=== PATIENT | female | born 1965 | race Hispanic/Latino ===

== ENCOUNTER 2020-02-12 19:46 | Emergency (ER) | payer SELFPAY ==
--- NOTE | ~2020-02-12 | XR_ITS ---
EXAMINATION: XR shoulder RT min 2V DATE: 02/12/2020 21:02 INDICATION: Right shoulder pain and limited range of motion. TECHNIQUE: AP internally and externally rotated, AP oblique externally rotated and transscapular Y vi ews of the right shoulder were obtained. COMPARISON: None FINDINGS: Normal alignment. No fracture.Mild glenohumeral and acromioclavicular osteoarthritis. Intramedullary metallic anchor likely for bicipital tenodesis along the anterior aspect of the proximal humeral katherine physis. Visualized portions of the lungs are clear. Soft tissues are unremarkable. IMPRESSION: 1. Mild right glenohumeral and acromioclavicular osteoarthritis. No acute osseous abnormality. 2. Postoperative change of likely prior right bicipital tenodesis. Reviewed, dictated and finalized at location A. IMPRESSION: 1. Mild right glenohumeral and acromioclavicular osteoarthritis. No acute osseo us abnormality. 2. Postoperative change of likely prior right bicipital tenodesis.
[2020-02-12 19:58] VITALS: BP 145/107; PULSE 89; RESP 18; TEMP 36.9; O2SAT 100
--- NOTE | 2020-02-12 20:49 | ED.UPPEXIN ---
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 Patient states over 1 year ago she had right subscapular repair with bicep tendon repair performed by a Dr. Rubio. He states since her surgery she has been having pain to right shoulder and upper arm. Her pain is worse with movement and lifting. She also reports she has had difficulty making a fist to right hand since her surgery. She describes her pain has a burning pain. She states her doctor was referring her a different doctor for pain injection in her hand and shoulder but she never received referral. She was taking naproxen 500 mg and this was helping her pain. She ran out of her naproxen 2 weeks ago so her pain has intensified. She denies any new injuries. complaint: injury to: right and shoulder Onset (ago): year(s) Relieving factors: medication (naproxen) Exacerbating factors: movement of extremity Related Data Allergies Allergy/AdvReac Type Severity Reaction Status Date / Time No Known Allergies Allergy Unknown Uncoded 02/12/20 20:03 Review of Systems Review of Systems: All systems reviewed & are unremarkable except as noted in HPI and below Constitutional: Constitutional: Denies chills and Denies fever(s) Respiratory: Respiratory: Denies dyspnea Gastrointestinal: Gastrointestinal: Denies nausea Musculoskeletal: Musculoskeletal: Reports arthralgias and Denies joint swelling Integumentary/Breasts: Skin/Breast: Denies erythema and Denies rash Neurologic: Denies focal weakness and Denies numbness [facility] Past Medical History Medical History (Updated 02/13/20 @ 00:00 by Background Daaniket) Patient denies medical problems Surgical History Surgical History (Updated 02/12/20 @ 20:56 by Bella Flynn MD) H/O shoulder surgery Social History Social History Gender identity (if verbalized by the patient): Female Exam Const: General: alert Orientation/consciousness: patient oriented x3 HENMT: Head: normocephalic and atraumatic Mouth: Yes Normal oral and palatal mucosa present Chest: Chest palpation & inspection: normal inspection of the chest Resp: Effort & Inspection: normal respiratory effort Auscultation: clear to auscultation bilaterally Cardio: Rate: regular rate Rhythm: regular rhythm Heart sounds: no murmurs Peripheral pulses: radial pulses present bilateral Skin: General skin exam: normal color Rashes: no rashes Neuro: General: patient oriented x3 and moves all extremities Extrem: General: no pedal edema Other: no erythema, redness or swelling to extremities. She has tenderness to palpation to right anterior shoulder. Pain with abduction of shoulder. Able to abduct almost up to 90 degrees Psych: Mental Status: mental status grossly normal Course Course Emergency Course: I have explained to patient I will prescribed NSAIDS and she will need follow up with PcP or orthopedic surgeon for her chronic right shoulder pain Vital Signs Vital signs: Vital Signs Temperature 98.5 F 02/12/20 19:58 Pulse Rate 89 02/12/20 19:58 Respiratory Rate 18 02/12/20 19:58 Blood Pressure 145/107 H 02/12/20 19:58 Pulse Oximetry 100 02/12/20 19:58 Temperature 98.5 F 02/12/20 19:58 Pulse Rate 89 02/12/20 19:58 Respiratory Rate 18 02/12/20 19:58 Blood Pressure 145/107 H 02/12/20 19:58 Pulse Oximetry 100 02/12/20 19:58 MDM - Extremity Injury (Upper) Imaging Data Radiologist's impression: ITS Impressions Shoulder X-Ray 02/12/20 21:07 IMPRESSION: 1. Mild right glenohumeral and acromioclavicular o
[2020-02-12] MEDS: KETOROLAC (*BKC) 60 MG/2 ML VIAL IM (21:08)
--- NOTE | 2020-02-12 22:14 | PC.NURSE ---
Discharge instructions given with lovet account consultant Martha. patient and family verbalized understanding.
== END 2020-02-12 22:29 | disposition home or self-care (01) ==
PROVIDERS: Emergency Provider General Practice; PCP Registered Nurse
DX: M25.511 Pain in right shoulder (principal); M19.011 Primary osteoarthritis, right shoulder; G89.29 Other chronic pain
CPT/HCPCS: 73030; 96372; 99283; A4565; J1885

== ENCOUNTER 2021-06-25 20:34 | Emergency (ER) | payer SELFPAY ==
--- NOTE | ~2021-06-25 | XR_ITS ---
EXAMINATION: XR chest 1V DATE: 06/25/2021 21:23 INDICATION: Right chest pain. TECHNIQUE: A single frontal view of the chest was obtained. COMPARISON: None. FINDINGS: There is mild atelectasis at left lung base. No pleural effusion or pneumothorax. Cardiomeg precious is noted. IMPRESSION: 1. Mild atelectasis at left lung base. 2. Cardiomegaly. Reviewed, dictated and finalized at location A.
--- NOTE | ~2021-06-25 | XR_ITS ---
EXAMINATION: XR shoulder RT min 2V DATE: 06/25/2021 21:23 INDICATION: Right shoulder pain. TECHNIQUE: 5 views of right shoulder were obtained. COMPARISON: Right shoulder radiographs 02/12/2020 FINDINGS: Bone alignment is normal. No fracture. There is mild osteoarthritis of glenohumeral joint a nd acromioclavicular joint. Again seen is an implant anterior to the proximal humeral diaphysis that may be from biceps tenodesis. IMPRESSION: 1. Mild polyarticular osteoarthritis. Reviewed, dictated and finalized at location A.
--- NOTE | 2021-06-25 20:39 | ECG_ITS ---
Measurements Intervals [place] Rate: 71 P: 25 MN: 158 QRS: -10 QRSD: 87 T: 8 QT: 398 QTc: 433 Interpretive Statements SINUS RHYTHM BASELINE ARTIFACT- I, II, III, AVR, AVL, AVF NORMAL ECG Electronically Signed On 06-26-2021 6:27:55 CDT by Richie Campbell D.O.
[2021-06-25 20:45] VITALS: BP 147/87; PULSE 77; RESP 18; TEMP 36.2; O2SAT 100
[2021-06-25 21:04] LABS: Basophils Absolute Auto 0.1 K/mm3 (0.0-0.1); Basophils Percent Auto 0.7 % (0.2-1.2); Eosinophils Absolute Auto 0.2 K/mm3 (0-0.3); Hematocrit 35.7 % (37.0-47.0); Hemoglobin 11.6 g/dL (12.0-15.0); Immature Granulocyte Absolute 0.02 K/mm3 (0.00-0.031); Immature Granulocyte Percent A 0.2 % (0-0.5); Lymphocytes Absolute Auto 3.28 K/mm3 (0.9-3.2); Lymphocytes Percent Auto 40.3 % (18.3-44.2); Mean Corpuscular HGB Conc 32.5 g/dl (32-36); Mean Corpuscular Volume 89.3 fl (80-100); Mean Platelet Volume 10.7 fl (7.4-10.4); Monocytes Absolute Auto 0.7 K/mm3 (0.1-0.6); Monocytes Percent Auto 8.5 % (2.6-8.5); Neutrophils Absolute Auto 3.8 K/mm3 (1.3-6.7); Neutrophils Percent Auto 47.3 % (45.5-73.1); Platelet Count Result 251 k/mm3 (150-375); Red Cell Distribution Width 12.3 % (11.5-14.5); White Blood Count 8.1 K/mm3 (4.5-10.0)
[2021-06-25 21:14] LABS: INR 0.9; Prothrombin Time 11.9 Seconds (11.1-14.7)
[2021-06-25 21:15] LABS: Partial Thromboplastin Time 26.8 SECONDS (22.3-36.8)
[2021-06-25 21:17] LABS: Anion Gap 13 mmol/L (8-16); Blood Urea Nitrogen 16 mg/dL (7-17); Calcium 9.5 mg/dL (8.4-10.2); Carbon Dioxide 28 mmol/L (22-30); Chloride 100 mmol/L (98-107); Estimated CRCL calculation 54 ml/min; Estimated Glomerular Filt Rate > 60; Glucose 109 mg/dL (65-110); Potassium 4.4 mmol/L (3.4-5.0); Sodium 141 mmol/L (137-145)
[2021-06-25 21:28] LABS: Troponin I < 0.012 ng/mL (0.000-0.034)
[2021-06-25 23:13] VITALS: BP 141/86; PULSE 64; RESP 17; O2SAT 100
--- NOTE | 2021-06-25 23:29 | ED.UPPEXIN ---
HPI - Extremity Injury (Upper) General Chief Complaint: Extremity Injury, Upper Stated Complaint: CP into right arm into back Time Seen by Provider: 06/25/21 23:15 Source: patient Mode of arrival: ambulatory Limitations: no limitations History of Present Illness HPI narrative: Patient is a 55-year-old female complaining of right shoulder pain, 8 out of 10, dull, aching, worse with movement, radiating to her right chest wall that started 1 week ago. Patient states that she has been having this pain for a while ever since she has had her's shoulder surgery in 2018. Patient denies any new injury. Patient denies any shortness of breath, abdominal pain, fever, chills or diaphoresis Related Data Allergies Allergy/AdvReac Type Severity Reaction Status Date / Time No Known Allergies Allergy Unknown Uncoded 06/25/21 23:15 Review of Systems Review of Systems: All systems reviewed & are unremarkable except as noted in HPI and below Constitutional: Constitutional: Denies body ache(s), Denies chills, Denies excessive sweating, Denies fatigue, Denies fever(s), Denies headache(s), Denies lethargy, Denies malaise, Denies weakness and Denies weight loss Eyes: Eyes: Denies blurry vision, Denies change in vision and Denies loss of vision ENT: Denies dizziness, Denies ear discharge, Denies headache(s), Denies lip swelling, Denies epistaxis, Denies nasal congestion, Denies neck pain, Denies throat swelling and Denies tongue swelling Cardiovascular: Cardiovascular: Denies chest pain, Denies chest pain at rest, Denies chest pain with activity, Denies diaphoresis, Denies rapid heart rate, Denies edema, Denies irregular heart rhythm, Denies lightheadedness, Denies palpitations, Denies dyspnea and Denies dyspnea on exertion Respiratory: Respiratory: Denies chest congestion, Denies cough, Denies hemoptysis, Denies dyspnea and Denies dyspnea on exertion Gastrointestinal: Gastrointestinal: Denies abdominal pain, Denies melena, Denies hematochezia, Denies diarrhea, Denies nausea, Denies vomiting and Denies hematemesis Musculoskeletal: Musculoskeletal: Denies abnormal gait, Denies deformity, Denies joint swelling, Denies limited range of motion, Denies neck pain and Denies numbness Neurologic: Denies Abnormal speech present, Denies abnormal gait, Denies confusion, Denies dizziness, Denies headache(s), Denies focal weakness, Denies loss of vision, Denies numbness, Denies Other visual disturbances, Denies Sensory deficit (Neuro) and Denies weakness Psychiatric: Psychiatric: Denies confusion, Denies depression, Denies auditory hallucinations, Denies homicidal ideation and Denies suicidal ideation Endocrine: Endocrine: Denies cold intolerance, Denies excessive sweating, Denies fatigue, Denies heat intolerance and Denies palpitations Hematologic/Lymphatic: Hematologic/Lymphatic: Denies easy bleeding and Denies easy bruising Allergic/Immunologic: Allergic/Immunologic: Denies lip swelling, Denies throat swelling and Denies tongue swelling PMFSH Past Medical History Medical History Patient denies medical problems Surgical History Surgical History H/O shoulder surgery Social History Social History Gender identity (if verbalized by the patient): Female Comments Past medical history: None Family history: None Social history: Non-smoker no EtOH or drug use Exam Const: General: cooperative, healthy appearing, comfortable, no acute distress, well developed, alert and awake; No confusion Orientation/consciousness: oriented to person, oriented to place, oriented to time, patient oriented x3 and No confusion Limitations: no limitations HENMT: Head: normal to inspection, normocephalic and atraumatic Ears: hearing grossly normal bilaterally, TM normal on the right and TM normal on the left General no
[2021-06-25] MEDS: KETOROLAC 30 MG/ML VIAL (*BKC) IM (23:49)
[2021-06-25] MEDS: diazePAM (*CRX) 5 MG TABLET PO (23:49)
[2021-06-26] MEDS: HYDROcodone/acetaminophen (*CRX) 5-325 MG TABLET 1 TAB PO (00:33)
[2021-06-26 00:54] VITALS: BP 144/86; PULSE 71; RESP 15; O2SAT 97
== END 2021-06-26 00:55 | disposition home or self-care (01) ==
LOC: ANHED 23:46
PROVIDERS: Emergency Provider Emergency Medicine; PCP Registered Nurse
DX: R07.89 Other chest pain (principal); M19.011 Primary osteoarthritis, right shoulder
CPT/HCPCS: 36415; 71045; 73030; 80048; 84484; 85025; 85610; 85730; 93005; 96372; 99284; A9270; J1885

== ENCOUNTER 2022-07-29 08:59 | Outpatient (CLI) | payer MEDICAID, SELFPAY ==
--- NOTE | 2022-07-29 | ECHO_ITS ---
Patient Info Name: Zenaida Almazan Age: 56 years : 1965 Gender: Female Ht: 60 in Wt: 154 lbs BSA: 1.75 m2 HR: 57 bpm BP: 133 / 84 mmHg Heart Rhythm: Sinus Rhythm Exam Date: 07/29/2022 9:41 AM Exam Location: [facility] Patient Status: Outpatient Admit Date: 07/29/2022 Staff Ordering Physician: Betty, Elisabeth TUBBS Photography Spotter: Hermilo Madsen RDCS Attending Provider: Betty, Elisabeth TUBBS Referring Physician: Betty ELLSWORTH; Exam Type: CA echo doppler color flow Study Info Indications I51.7 - Cardiomegaly Complete two-dimensional, color flow and Doppler transthoracic echocardiogram is performed. Summary 1. Complete two-dimensional, color flow and Doppler transthoracic echocardiogram is performed. 2. Left ventricular systolic function is normal, estimated at 55-60%. 3. The left ventricular diastolic function is grade I diastolic dysfunction. 4. There is mild aortic valve regurgitation. Left Ventricle Left ventricular chamber dimension is normal. Left ventricular systolic function is normal, estimated at 55-60%. There is no increased left ventricular wall thickness. The left ventricular diastolic function is grade I diastolic dysfunction. Right Ventricle Right ventricular chamber dimension is normal. Right ventricular systolic function is normal. Left Atria Left atrial chamber dimension is normal. Right Atria Right atrial chamber dimension is normal. Atrial Septum Intact interatrial septum visualized by color flow imaging. Aortic Valve The aortic valve is not well visualized. There is no aortic valve stenosis. There is mild aortic valve regurgitation. Pulmonic Valve The pulmonic valve is not well visualized. Mitral Valve The mitral valve has normal leaflets. There is no mitral valve stenosis. There is trace mitral valve regurgitation. Tricuspid Valve The tricuspid valve leaflets are normal. There is no significant tricuspid valve stenosis. There is trace tricuspid valve regurgitation. Pericardium/Pleural The pericardium appears epicardial fat pad. There is no pericardial effusion. Inferior Vena Cava Normal inferior vena cava with <50% collapse upon inspiration consistent with Empty right atrial pressure, Empty. Aorta The aortic root size at the sinus of Valsalva is normal. Left Ventricular Outflow Tract Name Value Normal LVOT 2D LVOT Diameter 2.0 cm LVOT Doppler LVOT Peak Gradient 4 mmHg LVOT Mean Gradient 3 mmHg LVOT VTI 28 cm LVOT VTI/AV VTI Ratio 1.0 LVOT Stroke Volume 86 ml LVOT CO 4.8 l/min LVOT CI 2.8 l/min/m2 Mitral Valve Name Value Normal MV Doppler MV Peak
== END 2022-07-29 09:00 | disposition home or self-care (01) ==
LOC: ANHCARD 09:06
PROVIDERS: PCP Physician Assistant; Visit Provider Physician Assistant
DX: I51.7 Cardiomegaly (principal)
CPT/HCPCS: 93306

== ENCOUNTER 2024-05-03 16:55 | Emergency (ER) | payer BC, SELFPAY ==
[2024-05-03 16:59] VITALS: BP 151/94; PULSE 77; RESP 16; TEMP 36.4; O2SAT 99
--- NOTE | 2024-05-03 19:17 | ED.NECK ---
HPI - Neck Pain/Injury General Chief Complaint: Neck Pain/Injury Stated Complaint: neck pain Time Seen by Provider: 05/03/24 18:50 History of Present Illness HPI Narrative: Patient is a 58-year-old female presenting with back pain. Patient is Citizen Of [place] speaking, solid center winder was used for the encounter. Patient states that she developed bilateral neck and upper back pain yesterday. She took some Aleve which did not really help. The pain continued through today so she came in for evaluation. States that it feels like a crick in her neck and is worsened with movement, especially looking to the left. Denies recent trauma or injuries. Denies numbness or weakness. No headache, vision changes, fevers, chest pain, shortness of breath. No further complaints. Related Data Allergies Allergy/AdvReac Type Severity Reaction Status Date / Time No Known Allergies Allergy Unknown Uncoded 12/10/21 12:07 Review of Systems Review of Systems: All systems reviewed & are unremarkable except as noted in HPI and below PMFSH Past Medical History Medical History Patient denies medical problems Surgical History Surgical History H/O shoulder surgery Social History Social History Gender identity (if verbalized by the patient): Female Exam Narrative: GENERAL: Well-appearing, well-nourished, and in no acute distress HEAD: Normocephalic, atraumatic. EYES: PERRLA and EOMI. ENT: Mucous membranes moist NECK: Supple. + bilateral muscular tenderness in cervical spine region; no midline tenderness CHEST: No respiratory distress. HEART: Regular rate and rhythm EXTREMITIES: R shoulder only able to abduct to about 90 degrees (states this is chronic); L shoulder w/full ROM; mild muscular tenderness over upper traps SKIN: Warm, dry, no rash. NEURO: No focal deficits. Alert and oriented x3. 5/5 strength in all extremities, no sensory deficits PSYCH: Normal mood and affect. Course Vital Signs Vital signs: Vital Signs Temperature 97.6 F 05/03/24 16:59 Pulse Rate 77 05/03/24 16:59 Respiratory Rate 16 05/03/24 16:59 Blood Pressure 151/94 H 05/03/24 16:59 Pulse Oximetry 99 05/03/24 16:59 Oxygen Delivery Room Air 05/03/24 16:59 Temperature 97.6 F 05/03/24 16:59 Pulse Rate 88 05/03/24 19:39 Respiratory Rate 19 05/03/24 19:39 Blood Pressure 143/76 H 05/03/24 19:39 Pulse Oximetry 96 05/03/24 19:39 Oxygen Delivery Room Air 05/03/24 16:59 MDM - Neck Pain/Injury MDM Narrative Medical decision making narrative: 58-year-old female presenting with 1 day of neck pain. Vitals are stable. Exam remarkable for the above. She does have muscular tenderness in her bilateral C-spine that extends into her upper traps. Pain is worsened with turning her neck, especially to the left. She has no midline tenderness. No recent injuries. No headache, vision changes, numbness or weakness. I suspect muscle spasms vs muscle strain as the cause of her pain. Will start her on naproxen and Flexeril. Do not feel imaging is warranted at this time. Advised close PCP follow-up. Strict return precautions with him. Patient is agreeable with this plan. Discharged in stable condition. Differential Diagnosis Differential diagnosis: Likely cervical radiculopathy, torticollis, cervical spondylosis and strain of neck muscle Medical Records Attestation: I reviewed the patient's medical records. Critical Care Time Critical Care Time Critical Care Time: No Discharge Plan Discharge Clinical Impression: Neck strain Patient Disposition: Home, Self-Care Condition: Stable Instructions: Antibiotic Form, Cervical Sprain (ED) Additional Instructions: Tu historia y tu examen de hoy son tranquilizadores. Sospechamos que saúl distensi?n muscular
[2024-05-03] MEDS: CYCLOBENZAPRINE HCL 10 MG TABLET PO (19:26)
[2024-05-03] MEDS: NAPROXEN 500 MG TABLET PO (19:26)
[2024-05-03 19:39] VITALS: BP 143/76; PULSE 88; RESP 19; O2SAT 96
== END 2024-05-03 19:40 | disposition home or self-care (01) ==
PROVIDERS: Emergency Provider Emergency Medicine; PCP Physician Assistant
DX: S16.1XXA Strain of muscle, fascia and tendon at neck level, initial encounter (principal); X58.XXXA Exposure to other specified factors, initial encounter
CPT/HCPCS: 99283; A9270

== ENCOUNTER 2024-09-21 11:56 | Emergency (ER) | payer BC, SELFPAY ==
--- NOTE | ~2024-09-21 | CT_ITS ---
CT soft tissue neck w con Ordering provider: Vidal Oliveros PA-C History: 59 years Female with . dysphagia, anterior neck pain . Comparison: None. Technique: CT soft tissues neck was performed with contrast. . Automated exposure control and iterat ryan reconstruction technique were employed. The dose-length product was 383.27 mGy-cm. 75 mL Omnipaqu e 350 was given IV. Findings: LOWER HEAD: An aneurysm is seen at the junction of the left M1 and M2 segments of the medial cerebral artery. The aneurysm measures 6.5 x 5.4 mm. The visualized brain parenchyma, optic globes/orbits and mastoids are normal. The visualized paranasal sinuses are well aerated. SALIVARY GLANDS: Normal. THYROID: Normal. SUPRAHYOID DEEP SPACES: Normal. CAROTID ARTERIES: Normal. JUGULAR VEINS: Normal. TONSILS: Normal. ORAL CAVITY: Partially obscured by dental amalgam but normal as visualized. PHARYNX, LARYNX AND TRACHEA: Patent and normal. No prevertebral soft tissue swelling. Small enhancing lesion seen anterior to the larynx measuring 8.3 mm which may represent ectopic thyroid tissue. Slight thickening of the wall of the esophagus is noted which may indicate reflux esophagitis. Gastro scopy is advised. SUPERFICIAL SOFT TISSUES: Normal. No lymphadenopathy or neck mass. THORACIC INLET/VISUALIZED UPPER CHEST: Normal. SKELETAL: Postoperative changes in the lower cervical area. Age appropriate degenerative changes. IMPRESSION: 1. Highly suggestive aneurysm in the left MCA distribution. CTA is advised. 2. Enhancing lesions seen anterior to the larynx which may represent an ectopic thyroid tissue. Furt her evaluation advised. 3. Slight thickening of the wall of the esophagus which may indicate reflux esophagitis. Other differ ential is not excluded. Gastroscopy is advised. Physician: Vidal Oliveros PA-C Was notified with the result of the patient at 3:00 PM on September 21, 2024 Reviewed, dictated and finalized at location A. RCYCLE ENGINE ASSEMBLER IMPRESSION: 1. Highly suggestive aneurysm in the left MCA distribution. CTA is advised. 2. Enhancing lesions seen anterior to the larynx which may represent an ectopi c thyroid tissue. Further evaluation advised. 3. Slight thickening of the wall of the esophagus which may indicate reflux eso phagitis. Other differential is not excluded. Gastroscopy is advised. Physician: Vidal Oliveros PA-C Was notified with the result of the patient at 3:00 PM on September 21, 2024
--- NOTE | ~2024-09-21 | CT_ITS ---
CTA brain carotid Ordering provider: Vidal Oliveros PA-C History: . L MCA aneusrysm . Comparison: None. Technique: CT angiogram head was performed following timed intravenous injection of contrast. Thin sl ice axial images and reformatted coronal images were obtained. Three dimensional reformatted images o f the brain were also obtained using a [employer] workstation. Radiation reduction technique utilized.The dose-length product was 1514.61 mGy-cm. 100 mL Omnipaque 3 50 was given IV. FINDINGS: --ANTERIOR AND MIDDLE CEREBRAL ARTERIES AND BRANCHES: Normal caliber and contour. 6 mm aneurysm is se en at the bifurcation of the left M1 segment. --INTERNAL CAROTID ARTERIES: Mild atheromatous disease but no significant stenosis. No occlusion. --BASILAR ARTERY AND BRANCHES: Normal caliber and contour. No atheromatous disease. --POSTERIOR CEREBRAL ARTERIES: Normal caliber and contour --POSTERIOR COMMUNICATING ARTERIES: The left posterior communicating artery is noted and continues as the left posterior cerebral artery. The right is not visualized which is probably related to congeni karena absence or small size. --ANEURYSM: 6 x 7x 8 mm aneurysm is seen at the bifurcation of the left M1 segment of the middle cere bral artery. --BRAIN: Mild brain atrophy. --BONES AND SUPERFICIAL SOFT TISSUES: Normal. --PARANASAL SINUSES AND MASTOIDS: Please refer to report of CT head done the same day. IMPRESSION: Aneurysm measuring 6 x 7 x 8 mm in the area of the bifurcation of the left M1 segment of the middle c erebral artery. Left posterior communicating artery continues as the left posterior cerebral artery. CTA brain carotid Ordering provider: Vidal Oliveros PA-C History: . L MCA aneusrysm . Comparison: None. Technique: CT angiogram neck was performed following timed intravenous injection of contrast. Thin sl ice axial images and reformatted coronal images were obtained. Three dimensional reformatted images o f the neck were also obtained using a [employer] workstation. Automated exposure control and iterative re construction technique were employed. The dose-length product was 1514.61 mGy-cm. FINDINGS: RIGHT CERVICAL CAROTID ARTERY: Normal caliber and contour. Percent stenosis per NASCET criteria is 0 % No carotid dissection. Otherwise, no significant atheromatous disease or stenosis of the cervical c arotid system. LEFT CERVICAL CAROTID ARTERY: Normal caliber and contour. Percent stenosis per NASCET criteria is 0% . No carotid dissection. Otherwise, no significant atheromatous disease or stenosis of the cervical c arotid system. VISUALIZED BILATERAL INTRACRANIAL CAROTID ARTERIES: Normal caliber and contour. VERTEBRAL BASILAR SYSTEM: Normal caliber and contour VISUALIZED AORTIC ARCH AND BRANCHING VESSELS: Normal caliber and contour. No significant atheromatous disease. SOFT TISSUES: An enhancing area anterior to the larynx. Slight thickening of the wall of the esophagu s. CERVICAL SPINE: Age appropriate degenerative changes. Postoperative changes in the lower cervical are a. IMPRESSION: Normal and neck. Percent stenosis per NASCET criteria is 0%. 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 Further evaluation advised. Thickening of the wall of the esophagus which may indicate reflux esophagitis. Reviewed, dictated and finalized at location A. R RELATIONS DIRECTOR IMPRESSION: Aneurysm measuring 6 x 7 x 8 mm in the area of the bifurcation of the left M1 s egment of the middle cerebral artery. Left posterior communicating artery continues as the left posterior cerebral ar bill. CTA brain carotid Ordering provider: Vidal Oliveros PA-C History: . L MCA aneusrysm . Comparison: None. Technique: CT angiogram neck was performed following timed intravenous injectio n of contrast. Thin slice axial images and reformatted coronal images were obta ined. Three dimensional reformatted images of the neck were also obtained using a [employer] workstation. Automated exposure control and iterative reconstruction technique were employed. The dose-length product was 1514.61 mGy-cm. FINDINGS: RIGHT CERVICAL CAROTID ARTERY: Normal caliber and contour. Percent stenosis per NASCET criteria is 0% No carotid dissection. Otherwise, no significant athero matous disease or stenosis of the cervical carotid system. LEFT CERVICAL CAROTID ARTERY: Normal caliber and contour. Percent stenosis per NASCET criteria is 0%. No carotid dissection. Otherwise, no significant athero matous disease or stenosis of the cervical carotid system. VISUALIZED BILATERAL INTRACRANIAL CAROTID ARTERIES: Normal caliber and contour. VERTEBRAL BASILAR SYSTEM: Normal caliber and contour VISUALIZED AORTIC ARCH AND BRANCHING VESSELS: Normal caliber and contour. No si gnificant atheromatous disease. SOFT TISSUES: An enhancing area anterior to the larynx. Slight thickening of th e wall of the esophagus. CERVICAL SPINE: Age appropriate degenerative changes. Postoperative changes in the lower cervical area. IMPRESSION: Normal and neck. Percent stenosis per NASCET criteria is 0%. 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 Furth er evaluation advised. Thickening of the wall of the esophagus which may indicate reflux esophagitis.
[2024-09-21 11:58] VITALS: BP 137/72; PULSE 80; RESP 18; TEMP 36.4; O2SAT 100
--- NOTE | 2024-09-21 12:17 | ECG_ITS ---
Test Date: 2024-09-21 12:40:15 Measurements Intervals [place] Rate: 73 P: 24 NM: 136 QRS: -2 QRSD: 85 T: 24 QT: 388 QTc: 428 Interpretive Statements SINUS RHYTHM VOLTAGE CRITERIA FOR LVH BORDERLINE ECG No previous ECG available for comparison Electronically Signed On 09-21-2024 15:55:33 LEASE ADMINISTRATOR by Richie Campbell D.O.
[2024-09-21 12:50] LABS: Basophils Absolute Auto 0.1 K/mm3 (0.0-0.1); Basophils Percent Auto 0.9 % (0.2-1.2); Eosinophils Absolute Auto 0.2 K/mm3 (0-0.3); Eosinophils Percent Auto 2.6 % (0-4.4); Hematocrit 36.3 % (37.0-47.0); Hemoglobin 12.1 g/dL (12.0-15.0); Immature Granulocyte Absolute 0.02 K/mm3 (0.00-0.031); Immature Granulocyte Percent A 0.2 % (0-0.5); Lymphocytes Absolute Auto 2.56 K/mm3 (0.9-3.2); Lymphocytes Percent Auto 31.1 % (18.3-44.2); Mean Corpuscular HGB Conc 33.3 g/dl (32-36); Mean Corpuscular Hemoglobin 29.5 pg (26-34); Mean Corpuscular Volume 88.5 fl (80-100); Mean Platelet Volume 10.3 fl (7.4-10.4); Monocytes Absolute Auto 0.6 K/mm3 (0.1-0.6); Monocytes Percent Auto 7.3 % (2.6-8.5); Neutrophils Absolute Auto 4.8 K/mm3 (1.3-6.7); Neutrophils Percent Auto 57.9 % (45.5-73.1); Platelet Count Result 273 k/mm3 (150-375); Red Cell Distribution Width 12.4 % (11.5-14.5); White Blood Count 8.2 K/mm3 (4.5-10.0)
[2024-09-21 13:05] LABS: Alanine Aminotransferase 19 U/L (6-35); Albumin Level 4.7 g/dL (3.5-5.1); Alkaline Phosphatase 102 U/L (38-126); Anion Gap 11 mmol/L (4-12); Aspartate Amino Transferase 29 U/L (14-36); Bilirubin,Total 0.5 mg/dL (0.2-1.3); Blood Urea Nitrogen 14 mg/dL (7-17); Calcium 9.2 mg/dL (8.4-10.2); Carbon Dioxide 24 mmol/L (22-30); Chloride 106 mmol/L (98-107); Estimated Glomerular Filt Rate > 60; Glucose 100 mg/dL (65-110); Potassium 3.8 mmol/L (3.4-5.0); Sodium 141 mmol/L (137-145)
--- NOTE | 2024-09-21 14:08 | ED.NECK ---
HPI - Neck Pain/Injury General Chief Complaint: Neck Pain/Injury Stated Complaint: pain in neck Time Seen by Provider: 09/21/24 13:51 Source: patient and family (Grandson (implementation project coordinator)) Mode of arrival: ambulatory Limitations: no limitations History of Present Illness HPI Narrative: This is a 59-year-old female who presents to the ED for multiple complaints. Endorses acute on chronic neck pain radiating into the right shoulder. Reports that she has had cervical disc surgery and fusion 1 year ago and feels that this may be related. Also reports that since then she has had some difficulty with swallowing solids. States she is able to eat and has not had vomiting. Denies fevers, chills, numbness, weakness, shortness of breath Related Data Allergies Allergy/AdvReac Type Severity Reaction Status Date / Time No Known Allergies Allergy Unknown Uncoded 09/21/24 12:04 Review of Systems Review of Systems: All systems as dictated in HPI PMFSH Past Medical History Medical History Patient denies medical problems Surgical History Surgical History H/O shoulder surgery Social History Social History Gender identity (if verbalized by the patient): Female Exam Narrative: GENERAL: Well-appearing, well-nourished, and in no acute distress. HEAD: Normocephalic, atraumatic. EYES: PERRLA and EOMI. ENT: Nares clear, no rhinorrhea or epistaxis. Mucous membranes moist. Oropharynx without tonsillar hypertrophy exudate or other lesions.Tolerating secretions NECK: Supple. No adenopathy or masses. CHEST: No respiratory distress. Clear to auscultation. No wheezes rales or rhonchi HEART: Regular rate and rhythm. No murmur heard. Normal peripheral pulses. ABDOMEN: Soft, nontender, nondistended, normal active bowel sounds. MSK: Normal range of motion. No edema. SKIN: Warm, dry, no rash. NEURO: Alert and oriented x4. No focal deficits. PSYCH: Normal mood and affect. Course Consultations Consultation #1: Spoke with Dr. Galvin (Neurosurgery): He is recommending that the patient follow-up with Dr. Orlando in clinic given that the patient is not having any neuro symptoms or headache with this finding of aneurysm today. Date: 09/21/24 Time: 16:40 Vital Signs Vital signs: Vital Signs Temperature 97.6 F 09/21/24 11:58 Pulse Rate 80 09/21/24 11:58 Respiratory Rate 18 09/21/24 11:58 Blood Pressure 137/72 09/21/24 11:58 Pulse Oximetry 100 09/21/24 11:58 Oxygen Delivery Room Air 09/21/24 11:58 Temperature 97.8 F 09/21/24 17:04 Pulse Rate 64 09/21/24 17:04 Respiratory Rate 20 09/21/24 17:04 Blood Pressure 139/78 09/21/24 17:04 Pulse Oximetry 98 09/21/24 17:04 Oxygen Delivery Room Air 09/21/24 11:58 MDM - Neck Pain/Injury MDM Narrative Medical decision making narrative: This is a 59-year-old female who presents to the ED for chief complaint of neck pain and fullness sensation of throat. Vitals are normal. Exam is benign overall. No neurologic deficits. No significant low back swelling, masses or adenopathy. Lab work is unremarkable overall. CT imaging the soft tissue neck/cervical spine: IMPRESSION: 1. Highly suggestive aneurysm in the left MCA distribution. CTA is advised. 2. Enhancing lesions seen anterior to the larynx which may represent an ectopic thyroid tissue. Further evaluation advised. 3. Slight thickening of the wall of the esophagus which may indicate reflux esophagitis. Other differential is not excluded. Gastroscopy is advised. 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 Left posterior communicating artery continues as the left posterior cerebral artery. Explain the above results the patient. I was able to get in touch with neurosurgery, Dr. Galvin who gave referral for the patient to be followed up in clinic for this aneurysm. On re-evaluation patient is feeling fine and is currently asymptomatic. She has not had any headache. I do feel that this aneurysm has a completely incidental finding today. I also discussed with her the need to follow-up with PCP and possibly Endocrinology for the thyroid findings. Rx given for GERD as a possible component of her throat pain. Patient will be discharged in stable condition. Supportive measures discussed and return precautions given. Patient is understanding and agreeable with plan for discharge with PCP follow-up. Lab Data 09/21/24 12:44 09/21/24 12:44 Labs: Lab Results 09/21/24 Range/Units 12:44 WBC 8.2 (4.5-10.0) K/mm3 RBC 4.10 L (4.2-5.4) M/mm3 Hgb 12.1 (12.0-15.0) g/dL Hct 36.3 L (37.0-47.0) % MCV 88.5 (80-100) fl MCH 29.5 (26-34) pg MCHC 33.3 (32-36) g/dl RDW 12.4 (11.5-14.5) % Plt Count 273 (150-375) k/mm3 MPV 10.3 (7.4-10.4) fl Immature Gran % (Auto) 0.2 (0-0.5) % Neut % (Auto) 57.9 (45.5-73.1) % Lymph % (Auto) 31.1 (18.3-44.2) % [place] % (Auto) 7.3 (2.6-8.5) % Eos % (Auto) 2.6 (0-4.4) % Baso % (Auto) 0.9 (0.2-1.2) % Lymph # (Auto) 2.56 (0.9-3.2) K/mm3 [place] # (Auto) 0.6 (0.1-0.6) K/mm3 Eos # (Auto) 0.2 (0-0.3) K/mm3 Baso # (Auto) 0.1 (0.0-0.1) K/mm3 Abs Immat Gran (auto) 0.02 (0.00-0.031) K/mm3 Absolute Neuts (auto) 4.8 (1.3-6.7) K/mm3 Absolute Nucleated RBC 0.000 (0.0-0.012) K/mm3 Nucleated RBC % 0.0 (0.0-0.2) % Sodium 141 (137-145) mmol/L Potassium 3.8 (3.4-5.0) mmol/L Chloride 106 (98-107) mmol/L Carbon Dioxide 24 (22-30) mmol/L Anion Gap 11 (4-12) mmol/L BUN 14 (7-17) mg/dL Creatinine 0.90 (0.7-1.0) mg/dL Estim Creat Clear Calc Not Reportable Estimated GFR > 60 (59 - ) Glucose 100 (65-110) mg/dL Calcium 9.2 (8.4-10.2) mg/dL Total Bilirubin 0.5 (0.2-1.3) mg/dL AST 29 (14-36) U/L ALT 19 (6-35) U/L Alkaline Phosphatase 102 (38-126) U/L Total Protein 8.0 (6.3-8.2) g/dL Albumin 4.7 (3.5-5.1) g/dL TSH 1.970 (0.465-4.680) uIU/mL Discharge Plan Discharge Clinical Impression: Neck pain, Ectopic thyroid tissue, Brain aneurysm Patient Disposition: Home, Self-Care Condition: Stable Instructions: Antibiotic Form Additional Instructions: Please follow-up with neurosurgery Dr. Orlando for this finding of brain aneurysm. Dr. Orlando phone: [phone] Follow-up with your PCP Elisabeth Hernández regarding the thyroid tissue which may be causing the pain and fullness sensation in the throat. Take Tylenol extra-strength as needed for neck pain. The pain in the throat could also be caused from acid reflux which should be treated with Pepcid If you have any new or worsening symptoms please return to the ER for further evaluation. Patient Language: Hebrew Prescriptions: New famotidine [Pepcid] 20 mg tablet 20 mg PO BID Qty: 60 0RF No Action naproxen 500 mg tablet 500 mg PO BID PRN (Reason: pain) Qty: 30 0RF tramadol [Ultram] 50 mg tablet 50 mg PO Q6H PRN (Reason: pain) Qty: 15 0RF naproxen 500 mg tablet 500 mg PO BID Qty: 20 0RF cyclobenzaprine 10 mg tablet 10 mg PO TID PRN (Reason: muscle spasm) Qty: 14 0RF Follow-up/Referrals: Betty,SULY Gould [Primary Care Provider] - Time of Disposition: 16:43
[2024-09-21 14:49] VITALS: BP 139/77; PULSE 70; RESP 18; O2SAT 100
[2024-09-21 17:04] VITALS: BP 139/78; PULSE 64; RESP 20; TEMP 36.6; O2SAT 98
== END 2024-09-21 17:06 | disposition home or self-care (01) ==
PROVIDERS: Emergency Provider Physician Assistant; PCP Physician Assistant
DX: M54.2 Cervicalgia (principal); R93.89 Abnormal findings on diagnostic imaging of other specified body structures; I67.1 Cerebral aneurysm, nonruptured; Z98.1 Arthrodesis status; R93.3 Abnormal findings on diagnostic imaging of other parts of digestive tract
CPT/HCPCS: 36415; 70491; 70496; 70498; 80053; 84443; 85025; 93005; 99284; Q9967